=== PATIENT | female | born 1975 | race Caucasian/White ===

== ENCOUNTER 2017-02-21 18:30 | Emergency (ER) | payer SELFPAY ==
--- NOTE | ~2017-02-21 | CT16 ---
[facility] A Service of [facility] RADIOLOGY TEXT RESULTS PATIENT: AI JARQUIN LOCATION: SED : 75 UNIT #: [id number] AGE: [address]: Deacon Quiles MD SEX: F ORDER DR: [id number] [address] [address] [id number] E MR#: [id number] Acc #: [id number] NAME: AI JARQUIN : 1975 SEX: F STUDY DATE/TIME: 02/21/2017 20:05 UNIT: SED ROOM: STUDY DESCRIPTION: CT Angio Chest for PE Attending Physician: Deacon Quiles M.D. Ordering Physician: Chelo Sherwood M.D. Primary Care Physician: [facility], [facility]. MEDICAL IMAGING REPORT This report is preliminary unless electronic signature is present. EXAM CT chest pulmonary embolism protocol. HISTORY Shortness of breath for 2 months, seen yesterday for cough, worse today. Possible spot on chest x-ray from February 20. History of hypertension. TECHNIQUE CT of the chest performed in the axial plane during the intravenous administration of 100 mL of Isovue-370. Pulmonary embolus protocol utilized with 3-D coronal MIP reconstructed imaging for the purpose of 3-D CT angiography of the pulmonary arterial system. This CT exam was performed with one or more of the following radiation dose reduction techniques: automatic exposure control, adjustment of mA and/or kV according to patient size, and iterative reconstruction. COMPARISON Comparison is made to yesterday's chest x-ray. FINDINGS There is no evidence for pulmonary embolism. There is no obvious thoracic aortic dissection, though the arch is poorly opacified due to timing of contrast bolus. There is no pericardial or pleural effusion. No axillary, hilar, or significant mediastinal lymphadenopathy is suspected. There are a few prominent lymph nodes in the AP window. There are several nodular opacities in the lungs. This includes a lesion in the left upper lobe which should correspond to the area of abnormality seen on yesterday's chest x-ray. It is noncalcified, patchy, ill-defined and about 9 mm in dimension. It is probably some infectious or inflammatory pathology. A small amount of adjacent tree-in-bud infiltrate is likely present also. There is a small nodular density seen in the lingula about 3-4 mm in dimension with tiny possible central cavitary area. There is a nodular density in the left lower lobe superior segment posteromedially [facility] A Service of [facility] RADIOLOGY TEXT RESULTS PATIENT: AI JARQUIN LOCATION: SED : 75 UNIT #: [id number] AGE: [address]: Deacon Quiles MD SEX: F ORDER DR: which may contain some calcification, but it is largely noncalcified. It is about 4 mm in dimension. Subtle noncalcified indistinct nodular infiltrate about 4 mm in dimension. Vague nodular densities seen in the right upper lobe anteriorly, tiny. I suspect these are all infectious or inflammatory given patient age group, but they are nonspecific and metastatic disease is a less likely consideration. There is a calcified lesion seen in the left lower lobe. This raises the possibility of granulomatous disease. Please evaluate further with clinical findings. Some calcified left hilar nodes are also seen which would favor granulomatous disease. I would recommend follow up imaging after appropriate therapy to ensure resolution of the nodular opacities. Please correlate for clinical evidence of infectious or inflammatory disease and exclude any concern for underlying malignancy. Both typical and atypical infectious disease is in the differential. IMPRESSION 1. There are multiple noncalcified nodular densities bilateral lungs. There is indistinct area of opacity in the left upper lobe which probably corresponds to the abnormality seen on the earlier chest x-ray. This area of involvement is most indistinct with some tree in bud opacities next to it and this favors that the pathology is due to some underlying infectious or inflammatory disease. A few tiny lesions appear to be cavitary. Largest area of involvement is up to about 9 mm in dimension. There is at least 1 calcified lesion in the left lower lobe. I would favor that all of the lesions are infectious or inflammatory in etiology with both typical and atypical infectious disease in the differential. There is evidence for old granulomatous disease with calcified left hilar nodes. Clinical correlation is recommended. Follow up imaging is recommended to ensure resolution of the nodular densities with therapy. If they do not resolve, follow up using Fleischner Society criteria is recommended. 2. Please correlate for any clinical history of or suspicion for underlying malignancy since metastatic lesions could have this appearance. 3. There is no evidence for pulmonary embolus, pleural effusion, pneumothorax or pericardial effusion. Allowing for the timing of the contrast bolus, nothing to suggest a thoracic aortic dissection. STAT * RESULT Dictated by... Tati Medina M.D. THIS IS AN ELECTRONICALLY VERIFIED REPORT Tati Medina M.D. at 02/21/2017 10:18 PM CHARLIE/jlay [facility] A Service of [facility] RADIOLOGY TEXT RESULTS PATIENT: AI JARQUIN LOCATION: [facility] #: [id number] : 75 UNIT #: [id number] AGE: [address]: Deacon Quiles MD SEX: F ORDER DR: TD: 02/21/2017 20:47 JOB #: [id number] MEDICAL IMAGING REPORT Page 1 of 1
[2017-02-21] MEDS ORDERED: ZITHROMAX (18:39)
[2017-02-21] MEDS ORDERED: MEDROL (18:39)
[2017-02-21 19:42] LABS: BASOPHIL# 0.1 X10e3 (0-0.3); BASOPHIL% 0.4 % (0-2.5); DIFF IND NO; EOSINOPHIL# 0.1 X10e3 (0-0.7); EOSINOPHIL% 0.6 % (0.0-7.0); HEMATOCRIT 40.5 % (35.0-45.0); HEMOGLOBIN 13.7 gm/dL (12.0-16.0); LYMPHOCYTE# 1.3 X10e3 (1.0-3.5); LYMPHOCYTE% 9.3 % (17.0-45.0); MEAN CELL VOLUME 87.2 FL (83-96); MEAN CORPUSCULAR HEMOGLOBIN 29.6 PG (28-34); MEAN CORPUSCULAR HGB CONC 33.9 g/dL (30-36); MEAN PLATELET VOLUME 8.4 FL (6.5-11.5); MONOCYTE# 0.7 X10e3 (0-1.0); MONOCYTE% 5.4 % (3.0-12.0); NEUTROPHIL# 11.6 X10e3 (1.5-7.1); NEUTROPHIL% 84.3 % (40-75); PLATELET COUNT 232 X10e3 (140-420); RED BLOOD COUNT 4.64 X10e (3.90-5.30); WHITE BLOOD COUNT 13.7 X10e3 (4.0-10.5)
[2017-02-21 19:57] LABS: BUN/CREATININE RATIO 21.42; CALCIUM SERUM 9.3 mg/dL (8.4-10.2); CREATININE SERUM 0.7 mg/dL (0.6-1.4); GLOM FILT RATE Estimated 107.6 mL/min (>60); POTASSIUM 3.6 mmol/L (3.5-5.1)
== END 2017-02-21 21:18 | disposition home or self-care (01) ==
LOC: SED 18:30
PROVIDERS: Student in an Organized Health Care Education/Training Program
DX: J18.9 Pneumonia, unspecified organism (principal); I10 Essential (primary) hypertension; F17.200 Nicotine dependence, unspecified, uncomplicated
CPT/HCPCS: 71275; 80048; 85025; 94640; 99284; Q9967

== ENCOUNTER 2017-03-06 20:11 | Emergency (ER) | payer MEDICARE ==
--- NOTE | ~2017-03-06 | CR63 ---
[facility] A Service of [facility] RADIOLOGY TEXT RESULTS PATIENT: AI JARQUIN LOCATION: SED : 75 UNIT #: [id number] AGE: [address]: Jose Luis Read MD SEX: F ORDER DR: [id number] [place] [id number] E MR#: [id number] Acc #: [id number] NAME: AI JARQUIN : 1975 SEX: F STUDY DATE/TIME: 03/06/2017 21:00 UNIT: SED ROOM: STUDY DESCRIPTION: CR Chest 2 View Attending Physician: Jose Luis Read M.D. Ordering Physician: Jose Luis Read M.D. Primary Care Physician: No Primary Care Physician MEDICAL IMAGING REPORT This report is preliminary unless electronic signature is present. EXAM Chest two views, 03/06/17 INDICATIONS A 41-year-old female with cough. Right-sided back pain, congestion. Unable to take a deep breath. Recently treated for pneumonia. Symptoms several days. Tobacco abuse. TECHNIQUE Two-view chest compared with 02/20/2017 FINDINGS Cardiac silhouette is within normal limits for technique. Vascularity unremarkable. There is no effusion dense consolidation or pneumothorax. Previously identified. Faint 5 mm nodular density in the peripheral of the mid to upper lung zone on the left is unchanged. Please see separately dictated CT chest 02/21/2017 for further details and followup recommendations regarding other nodules identified on chest CT which are not discernible with plain film technique. IMPRESSION 1. No dense consolidation, effusion or pneumothorax or significant change from 02/20/2017. 2. The patient has known noncalcified nodules in both lungs that are best demonstrated with CT. Please see the prior CT of 02/21/2017 for further details and followup recommendations. Dictated by... Audi Car M.D. THIS IS AN ELECTRONICALLY VERIFIED REPORT [facility] A Service of [facility] RADIOLOGY TEXT RESULTS PATIENT: IA JARQUIN LOCATION: SED : 75 UNIT #: [id number] AGE: [address]: Jose Luis Read MD SEX: F ORDER DR: Audi Car M.D. at 03/07/2017 3:17 PM STEPHANIE/radha TD: 03/06/2017 23:20 JOB #: [id number] MEDICAL IMAGING REPORT Page 1 of 1
[~2017-03-06 20:11] MED LIST: MEDROL; ZITHROMAX
[2017-03-06] MEDS ORDERED: HYDROCODON-ACE1 EAC5 PO (20:20)
== END 2017-03-06 21:48 | disposition home or self-care (01) ==
LOC: SED 20:11
DX: J44.1 Chronic obstructive pulmonary disease with (acute) exacerbation (principal); I10 Essential (primary) hypertension; F17.200 Nicotine dependence, unspecified, uncomplicated; Z79.899 Other long term (current) drug therapy
CPT/HCPCS: 71020; 94640; 96372; 99283; J1040